=== PATIENT | female | born 1985 | race American Indian/Alaskan Native ===

== ENCOUNTER 2016-10-20 23:01 | Emergency (ER) | payer MEDICAID ==
--- NOTE | 2016-10-20 23:44 | Emergency Department Report ---
Upper Extremity - HPI Chief Complaint: Extremity Injury, Upper Stated Complaint: R WRIST SORENESS Time Seen by Provider: 10/20/16 23:43 Upper Extremity: Left Wrist (pain and numbness and tingling.) Occurred When: >5 Days Mechanism: Unsure Severity: moderate (6-10) Symptoms: Yes Pain with Movement (right wrist), Yes Limited Range of Movement, Yes Numbness (right wrist), No Deformity, No Weakness, No Swelling, No Bruising/ Ecchymosis, No Laceration or Abrasion Other History: Pt here reported that she has right wrist pain 6 out of 10 without any history of injury. She says she uses computer frequently at work and she noticed that she's been having some numbness and tingling to her hand. Denies any injury. Denies any fever or chills. Denies any weakness or inability to use right hand. Pt is right handed. Denies any redness to hand or wrist. ED Review of Systems ROS: Stated complaint: R WRIST SORENESS Other details as noted in HPI Comment: All other systems reviewed and negative Constitutional: denies: chills, fever Respiratory: no symptoms reported Cardiovascular: denies: chest pain, palpitations, edema, syncope Gastrointestinal: denies: abdominal pain, nausea, vomiting, diarrhea Musculoskeletal: arthralgia. denies: back pain, joint swelling, myalgia Skin: denies: rash Neurological: numbness, paresthesias. denies: headache, weakness, confusion, abnormal gait, vertigo ED Past Medical Hx - Past Medical History Previous Medical History?: No - Surgical History Past Surgical History?: No - Family History Family history: no significant - Social History Smoking Status: Never Smoker Substance Use Type: None - Medications Home Medications: Home Medications Medication Instructions Recorded Confirmed Last Taken Type Ibuprofen [Motrin] 600 mg PO Q8H PRN #20 tablet 10/21/16 Unknown Rx Upper Extremity Exam - Exam General: Vital signs noted. No distress. Alert and acting appropriately. This is a 30-year-old female well-nourished well-developed in no acute distress Head and Torso: No HEENT Abnormality (normal exam), No Neck Tenderness (normal exam), No Chest/Lungs Abnormality (normal exam), No Abdominal Tenderness ( normal exam), No Back Tenderness (normal exam) Shoulder Exam: Yes Normal Range of Motion in Shoulder, No Shoulder Tenderness, No Clavicle Tenderness, No Shoulder Deformity, No AC Joint Tenderness Arm Exam: No Arm/Humerus Tenderness, No Arm Deformity Elbow: Yes Normal Range of Motion in Elbow, No Elbow Tenderness, No Elbow Deformity Forearm: No Forearm Tenderness, No Forearm Deformity, No Pain with Pronation, No Pain with Supination Wrist: Yes Normal ROM in Wrist, No Wrist Tenderness (TTP right wrist on the ulnar side), No Wrist Deformity, No Snuffbox Tenderness, No Pain with Axial Thumb Compression Hand: Yes Normal ROM in Digit(s), No Hand Tenderness, No Hand Deformity, No Digit Tenderness, No Digit(s) Deformity, No Tendon Dysfunction CMS Exam: Yes Normal Distal Pulses, Yes Normal Capillary Refill, Yes Normal Distal Sensation, No Broken Skin ED Course Vital Signs 10/20/16 23:11 Temperature 98.2 F Pulse Rate 71 Respiratory 16 Rate Blood Pressure 120/82 O2 Sat by Pulse 97 Oximetry - Reevaluation(s) Reevaluation #1: 10/21/16 01:03 Patient given Toradol 60 mg IM and placed in a wrist splint. - Orthopedic Splinting/Casting Injury #1 Side: right Upper Extremity Injury Location: wrist Upper Extremity Immobilizer: wrist splint, thumb spica ED Medical Decision Making - Radiology Data Radiology results: report reviewed interpreted by me: X-ray of right wrist did not show any fracture or dislocation nor soft tissue swelling. This is preliminary reading in and awaiting radiologist's reading. Patient is aware. - Medical Decision Making ED course: Sent here with right wrist pain that has been ongoing for over a week. She says she uses computer a lot at work and she noticed that she's been having right wrist pain on the thumb side more frequently especially when using computer keyboard. She reports some numbness and tingling to her hands. Patient was given Toradol 60 mg IM and wrist splint placed to right wrist. Patient voiced relief of pain and instructed that she will need to follow-up with orthopedic doctor in 3-5 days for further evaluation for possible carpal tunnel syndrome. Patient was understanding of discharge diagnosis and treatment plan and discharged home in stable condition. See procedure note for wrist splint placement. Diagnostic: Preliminary reading of right wrist x-ray revealed no acute fracture dislocation. Assessment/plan 1.Arthralgia right wrist 2. Numbness and tingling into extremity secondary to right wrist pain Patient discharged home with referral to orthopedic doctor and also given prescription for Motrin. Critical care attestation.: If time is entered above; I have spent that time in minutes in the direct care of this critically ill patient, excluding procedure time. ED Disposition Clinical Impression: Right hand paresthesia Arthralgia Qualifiers: Joint pain location: wrist Laterality: right Qualified Code(s): M25.531 - Pain in right wrist Disposition: TO HOME OR SELFCARE Is pt being admited?: No Does the pt Need Aspirin: No Condition: Stable Instructions: Arthralgia (ED), Paresthesia (ED) Additional Instructions: Please follow up with orthopedic doctor as instructed Take Motrin as needed for pain Please continue to wear wrist splint Prescriptions: Ibuprofen [Motrin] 600 mg PO Q8H PRN #20 tablet PRN Reason: Pain Referrals: AMARJIT RUST MD [Staff Physician] - 3-5 Days Forms: Work/School Release Form(ED)
[2016-10-20] MEDS ORDERED: TORADOL IM ONE (23:50)
--- NOTE | 2016-10-21 01:19 | XRay Report ---
FINAL REPORT PROCEDURE: XR WRIST 3+V RT TECHNIQUE: Right wrist radiographs, including AP, lateral, and oblique views. CPT 21375 HISTORY: wrist pain COMPARISON: No prior studies are available for comparison. FINDINGS: Fracture (s) and/or Dislocation(s): None . Alignment: Normal . Joint space(s): Normal . Soft tissues: Normal . Bone mineralization: Normal . Foreign bodies: None . IMPRESSION: Normal Examination.
[2016-10-21 01:22] VITALS: BP 150/95
== END 2016-10-21 01:21 | disposition home or self-care (01) ==
LOC: ED 23:01
DX: M25.531 Pain in right wrist (principal); R20.0 Anesthesia of skin
CPT/HCPCS: 29125; 73110; 96372; 99283; J1885